=== PATIENT | female | born 1980 | race Caucasian/White ===

== ENCOUNTER 2016-09-06 02:14 | Emergency (ER) | payer SELFPAY ==
[~2016-09-06] VITALS: Ht 154.9 cm; Wt 55.0 kg
[~2016-09-06 02:14] MED LIST: BIOT1CAP8 PO; VITACAP26 PO; vitamin b 12 PO; vitamin d PO
[2016-09-06 02:16] VITALS: TEMP 36.8; Ht 154.9 cm; Wt 55.0 kg
[2016-09-06] MEDS ORDERED: ALBUT/IPRATROP 3MG/0.5MG NEB 3 ML VIAL INH STA (02:33)
[2016-09-06] MEDS ORDERED: ALBUTEROL HFA 8 GM INHALER INH ONE (04:00)
[2016-09-06] MEDS ORDERED: HYDR5SYP11 PO (04:01)
[2016-09-06] MEDS ORDERED: AZITTAB PO (04:01)
--- NOTE | 2016-09-06 04:02 | EMERGENCY ROOM VISIT NOTE ---
History First contact with patient: 02:21 Chief Complaint: FLU LIKE SX Stated Complaint: FLU SYMS History of Present Illness The patient is a 36 year old female who presents to the Emergency Room with complaints of flulike symptoms. The patient states that over the past 9 days, she has had nasal drainage, a nonproductive cough, and fatigue. The patient states that her ears have felt full. She has had some general body aches. She did not receive a flu vaccine this year. She denies any headache, neck pain, fevers, shortness of breath, chest pain, abdominal pain, nausea or vomiting. Review of Systems A complete 10-point Review of Systems was discussed with the patient, with pertinent positives and negatives listed in the History of Present Illness. All remaining Review of Systems questions can be considered negative unless otherwise specified. Past Medical/Surgical History Medical Problems: (1) Thyroiditis Nos Surgical Problems: (1) No significant past surgical history Social History Smoking Status: Current Every Day Smoker Alcohol Use: none Marital Status: Occupation Status: employed Current/Historical Medications Scheduled Azithromycin (Zithromax Z-Errol), 0 PO UD Scheduled PRN Hydrocodone W/ Homatropine (Hycodan 5/1.5MG 5 Ml), 5-10 ML PO Q4H PRN for Cough Allergies Coded Allergies: No Known Allergies (Unverified , 09/06/16) Physical Exam Vital Signs Date Time Temp Pulse Resp B/P Pulse Ox O2 Delivery O2 Flow Rate FiO2 09/06/16 04:10 85 18 104/68 100 09/06/16 02:16 36.8 82 18 145/96 100 Room Air Physical Exam VITALS: Vitals are noted on the nurse's note and reviewed by myself. Vital signs stable. GENERAL: This is a 36-year-old female, in no acute distress, nondiaphoretic, well-developed well-nourished. SKIN: The skin was without rashes. EARS: External auditory canals clear, tympanic membranes pearly ayala without erythema or effusion bilaterally. EYES: Pupils equal round and reactive to light and accommodation. Conjunctivae without injection, sclerae without icterus. NOSE: Patent, turbinates without inflammation or discharge. No sinus tenderness. MOUTH: Mucous membranes moist. Tonsils are not enlarged. Pharynx without erythema or exudate. NECK: Supple without nuchal rigidity. No lymphadenopathy. No meningismus. HEART: Regular rate and rhythm without murmurs gallops or rubs. LUNGS: Mild expiratory wheezing throughout. Lungs are otherwise clear. No retractions or accessory muscle use. ABDOMEN: Positive bowel sounds x 4. Soft, nontender to palpation. NEURO: Patient was alert and oriented to person place and time. Medical Decision & Procedures ER Provider Diagnostic Interpretation: Chest x-ray interpretation: No bony abnormalities. No pneumothorax. No obvious consolidation. Cardiac silhouette is normal. Laboratory Results Test 09/06/16 00:00 Influenza Type A Antigen Neg for Influ A (NEG) Influenza Type B Antigen Neg for Influ B (NEG) Medications Administered Medications (Trade) Dose Ordered Sig/Osiel Route Start Time Stop Time Status Last Admin Dose Admin Albuterol/ Ipratropium (Duoneb) 3 ml NOW STAT INH 09/06/16 02:33 09/06/16 02:35 DC 09/06/16 02:33 3 ML Albuterol (Ventolin Hfa Inhaler) 2 puffs NOW ONCE INH 09/06/16 04:00 09/06/16 04:01 DC 09/06/16 04:09 2 PUFFS Medical Decision Differential diagnosis includes pneumonia, influenza, upper respiratory infection, among others. The patient is a 36-year-old female who presents today complaining of with cough and flulike symptoms. Chest x-ray was unremarkable. Influenza was negative. The patient was given a DuoNeb and had mild relief of her symptoms. She will be placed on a Z-Errol as she has had symptoms for over one week. She was instructed to follow-up with her primary care provider. The patient was educated to the emergency department for any worsening of their current condition or new/concerning symptoms. Impression Primary Impression: Upper respiratory infection Departure Information Dispostion Home / Self-Care Condition GOOD Prescriptions Hydrocodone W/ Homatropine (HYCODAN 5/1.5MG 5 ML) 1 Syp Syp 5-10 ML PO Q4H Y for Cough, #60 ML Prov: Alyce Pena PA-C 09/06/16 Azithromycin (ZITHROMAX Z-ERROL) 250 Mg Tab 0 PO UD, #1 PKT 2 TABS DAY 1, THEN 1 TAB DAILY FOR 4 DAYS Prov: Alyce Pena PA-C 09/06/16 Referrals No Doctor, Assigned (PCP) Patient Instructions My [facility] Additional Instructions You were prescribed Zithromax to be taken as prescribed. This is an antibiotic. All antibiotics have the potential to cause diarrhea. Stop this medication and contact a medical provider if you were to develop any significant adverse side effects including: wheezing, shortness of breath, passing out, vomiting, or a diffuse rash. Always take antibiotics as directed and COMPLETE the ENTIRE course regardless of the improvement of your symptoms. Take the Hycodan cough syrup as needed for severe cough. This is a narcotic medication. You cannot drive and should not drink alcohol while taking this medication. Use the inhaler as needed for cough/shortness of breath. Follow-up with a primary care provider in 2-3 days for further evaluation of your symptoms. Return to the emergency room with worsening shortness of breath, chest pain or any other new/concerning symptoms. Problem Qualifiers Primary Impression: Upper respiratory infection URI type: unspecified URI Qualified Codes: J06.9 - Acute upper respiratory infection, unspecified
[2016-09-06 04:10] VITALS: BP 104/68; PULSE 85; O2SAT 100
--- NOTE | 2016-09-06 07:30 | DIAGNOSTIC IMAGING REPORT ---
CHEST 2 VIEWS ROUTINE CLINICAL HISTORY: cough FLULIKE SYMPTOMS COMPARISON STUDY: No previous studies for comparison. FINDINGS: The cardiac and mediastinal contours are normal. There is no evidence of focal pulmonary consolidation. There is no evidence of failure. No pleural effusions are visualized.[ Minimal left lower lobe bronchial wall thickening is suspected. IMPRESSION: Suspected minimal left lower lobe bronchial wall thickening. No evidence of lobar consolidation. Electronically signed by: Binh Romero M.D. 09/06/2016 7:28 AM Dictated Date/Time: 09/06/2016 7:26 AM
== END 2016-09-06 04:10 | disposition home or self-care (01) ==
LOC: C.EDB 02:15
DX: J06.9 Acute upper respiratory infection, unspecified (principal); E06.9 Thyroiditis, unspecified; F17.210 Nicotine dependence, cigarettes, uncomplicated

== ENCOUNTER 2017-02-25 08:36 | Emergency (ER) | payer SELFPAY ==
[~2017-02-25] VITALS: Ht 162.6 cm; Wt 47.7 kg
[2017-02-25 08:44] VITALS: TEMP 36.6; Ht 162.6 cm; Wt 47.7 kg
[2017-02-25] MEDS ORDERED: SODIUM CHLORIDE 0.9% 1000ML 1,000 ML IV STA (09:14)
[2017-02-25 09:29] LABS: URINE APPEARANCE CLOUDY (CLEAR); URINE BILIRUBIN NEG (NEG); URINE COLOR YELLOW; URINE EPITHELIAL CELL AUTO >30 /lpf (0-5); URINE NITRITE NEG (NEG); URINE PH 5.5 (4.5-7.5); URINE SPECIFIC GRAVITY 1.033 (1.000-1.030); UROBILINOGEN NEG (NEG)
[2017-02-25 09:33] LABS: MANUAL MICROSCOPIC REQUIRED? NO; REVIEW REQ? YES
[2017-02-25 09:53] LABS: BASO % 0.4 %; BASO ABS # 0.03 K/uL (0-0.2); COMPLETE YES; EOS % 6.5 %; HEMATOCRIT 43.8 % (37-47); IG% 0.3 %; LYMPH % 40.8 %; LYMPH ABS # 2.89 K/uL (1.2-3.4); MEAN CELL VOLUME 92.6 fL (80-100); MEAN CORPUSCULAR HEMOGLOBIN 31.7 pg (25-34); MEAN CORPUSCULAR HGB CONC 34.2 g/dl (32-36); MEAN PLATELET VOLUME 10.5 fL (7.4-10.4); MONO % 7.6 %; NEUT % 44.4 %; PLATELET COUNT 209 K/uL (130-400); RED BLOOD COUNT 4.73 M/uL (4.2-5.4); WHITE BLOOD COUNT 7.08 K/uL (4.8-10.8)
--- NOTE | 2017-02-25 10:11 | DIAGNOSTIC IMAGING REPORT ---
CHEST AND ABDOMEN 2 VIEWS HISTORY: ABD PAIN, BLOATING X MONTHS COMPARISON: Chest 09/06/2016. FINDINGS: The lungs are clear. The cardiomediastinal silhouette is within normal limits. There is no pneumoperitoneum or pneumatosis. The bowel gas pattern is unremarkable. No evidence for bowel obstruction. No renal or ureteral calculi. Multiple pelvic phleboliths. IMPRESSION: No acute cardiopulmonary process. No evidence for bowel obstruction. Electronically signed by: Guille Nguyen M.D. 02/25/2017 10:09 AM Dictated Date/Time: 02/25/2017 10:03 AM
[2017-02-25 10:33] LABS: ALB/GLOB RATIO 1.1 (0.9-2); BUN/CREATININE RATIO 21.3 (10-20); CALCIUM 8.6 mg/dl (8.5-10.1); CREATININE 0.94 mg/dl (0.60-1.20); POTASSIUM 3.8 mmol/L (3.5-5.1); THYROID STIMULATING HORMONE 1.05 uIu/ml (0.300-4.500)
[2017-02-25] MEDS ORDERED: OPTIRAY 320 IV PRN (11:15)
--- NOTE | 2017-02-25 11:21 | DIAGNOSTIC IMAGING REPORT ---
CT SCAN OF THE ABDOMEN AND PELVIS WITH IV CONTRAST CLINICAL HISTORY: Generalized abdominal pain of 8 months duration. Unintended weight loss. COMPARISON STUDY: Abdominal radiographs dated 02/25/2017. TECHNIQUE: Following the IV administration of 94 cc of Optiray 320, CT scan of the abdomen and pelvis is performed from the lung bases to the proximal femora. Images are reviewed in the axial, sagittal, and coronal planes. IV contrast was administered without complication. A dose lowering technique was utilized adhering to the principles of ALARA. The examination is degraded by a paucity of intraperitoneal fat. CT DOSE: 246.58 mGy.cm FINDINGS: Lung bases: The heart is normal in size and without pericardial effusion. Foci of air trapping are identified at the lung bases. No airspace consolidation or pleural effusion is seen. Liver: The contrast-enhanced liver is normal in size, contour, and attenuation. There is no intrahepatic biliary ductal dilatation. The hepatic veins and portal veins are patent. A 1.4 cm low-attenuation lesion with foci of peripheral discontinuous nodular enhancement is seen in hepatic segment VII on image #41. Although incomplete characterized, the appearance is typical for a small hemangioma. Gallbladder: Unremarkable. Spleen: Normal in size and attenuation. Pancreas: Unremarkable. Adrenal glands: Unremarkable. Kidneys: The contrast enhanced kidneys are normal in size and without hydronephrosis. The kidneys enhance symmetrically. Abdominal vasculature: The abdominal aorta is normal in course and caliber. Bowel: The small bowel and colon are normal in course and caliber. The appendix is well-visualized and normal. Peritoneum: There is no intraperitoneal free air or abdominal ascites. Lymphadenopathy: None. Pelvic viscera: The uterus is heterogeneous and the endometrial stripe appears thickened. There is a small volume of free fluid in the cul-de-sac. A 3.6 cm simple appearing cyst is identified in the right ovary which is located in the ventral right lower quadrant. There are small left ovarian follicles. The bladder is normal as visualized. Numerous phleboliths are identified. Skeletal structures: No lytic or blastic lesions are seen. Sclerotic change is seen in the sacroiliac joints. Scattered bone islands are present in the pelvis. IMPRESSION: 1. There are no acute infectious or inflammatory findings in the abdomen or pelvis. 2. The uterus is heterogeneous and the endometrial stripe appears thickened. This may be related to the phase of the patient's cycle. 3. There is a 3.6 cm simple appearing cyst identified in the right ovary. 4. A small volume of free fluid in the cul-de-sac is likely within physiologic limits. 5. Additional findings as above. Electronically signed by: Lon Manrique M.D. 02/25/2017 11:19 AM Dictated Date/Time: 02/25/2017 11:13 AM
[2017-02-25] MEDS ORDERED: HYDR-5688 PO (12:25)
--- NOTE | 2017-02-25 12:27 | EMERGENCY ROOM VISIT NOTE ---
History First contact with patient: 08:50 Chief Complaint: ABDOMINAL PAIN Stated Complaint: HERNIA-BELLY AREA Nursing Triage Summary: having abdominal pain for the past 8 months. I feel bloated all the time. I havent gone to a dr. I notice the pain more when I am lifting heavy things or running the vacum. "I think I have a hernia and it is just getting worse" History of Present Illness Patient is a 37-year-old white female who presents emergency department for evaluation of abdominal pain 8 months. Patient reports that her symptoms started in June. She reports a lot of lower abdominal bloating and pressure. She states her abdomen feels hard to the touch, and reports that it is painful. She reports pain in the epigastric region, but also pain in the lower pelvic region. It has been progressively worsening. It worsened after she had a cold with a cough for about 3 weeks ago. 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 She also has pain with stairs and sexual intercourse. She has not taken any medication for her pain, nor tried any other medications. She reports that the pain keeps her from eating, and then when she does eat the pain is worse. She reports primarily constipation, but denies melena or hematochezia. She has not had any urinary symptoms. She reports a 60 pound weight loss in the last year, this is unintentional. 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 Her menses are typically irregular, and have been normal for her. Last menstrual period was February 09. She reports a history of abnormal Pap smear in 2008. She reportedly had a biopsy at that time, she has not had any gynecologic follow-up. She was diagnosed with a hiatal hernia about 4 years ago and placed on a PPI. She took this medication for a while, then stopped it and only began to use as needed. She is status post tubal ligation. Review of Systems Review of systems as per HPI. All other systems reviewed were negative. 10 systems reviewed. Past Medical/Surgical History Medical Problems: (1) Acute sinusitis (2) Thyroiditis Nos Surgical Problems: (1) History of tubal ligation (2) No significant past surgical history Electronic medical records are reviewed and summarized as above/below. See Problem List. Social History Smoking Status: Current Every Day Smoker Alcohol Use: none Marital Status: in relationship Housing Status: lives with family Occupation Status: employed Current/Historical Medications Scheduled PRN Hydrocodone/Acetaminophen 5MG/325MG (Arbela 5MG/325MG), 1-2 TABLETS PO Q4 PRN for Pain Physical Exam Vital Signs Date Time Temp Pulse Resp B/P (MAP) Pulse Ox O2 Delivery O2 Flow Rate FiO2 02/25/17 12:59 65 18 103/67 95 02/25/17 11:54 51 18 91/58 98 Room Air 02/25/17 08:44 36.6 66 18 116/78 98 Room Air Physical Exam CONSTITUTIONAL: Patient is a thin, well-appearing 37-year-old white female who is awake and alert and in no acute distress. EYES: Pupils equal, round, reactive to light and accommodation. EOMs intact without nystagmus. Sclera are anicteric. ENT: Tympanic membranes intact, with normal landmarks. External canals are clear. Oral and nasopharynx are clear. Mucous membranes are moist, no lesions , tongue and gums appear normal. NECK: No bruits auscultated. Supple without lymphadenopathy. No thyromegaly. No meningeal signs. Full active range of motion without discomfort. CARDIOVASCULAR: Regular rate and rhythm, with normal S1 and S2, no murmur or gallop or rub is heard. No carotid bruits auscultated. No JVD. Peripheral pulses easily palpable. RESPIRATORY: Breath sounds equal and clear to auscultation without wheezes, rales, or rhonchi heard. Full and equal chest expansion without accessory muscle use or retractions. ABDOMEN: Bowel sounds are present. Abdomen is soft, nondistended, mildly tender throughout, primarily in the lower abdomen. There is no guarding, rebound or rigidity. No masses appreciated. No organomegaly. INTEGUMENTARY: No lesions or rash, normal skin turgor. LYMPH: No lymphadenopathy. Medical Decision & Procedures ER Provider Diagnostic Interpretation: CHEST AND ABDOMEN 2 VIEWS HISTORY: ABD PAIN, BLOATING X MONTHS COMPARISON: Chest 09/06/2016. FINDINGS: The lungs are clear. The cardiomediastinal silhouette is within normal limits. There is no pneumoperitoneum or pneumatosis. The bowel gas pattern is unremarkable. No evidence for bowel obstruction. No renal or ureteral calculi. Multiple pelvic phleboliths. IMPRESSION: No acute cardiopulmonary process. No evidence for bowel obstruction. CT SCAN OF THE ABDOMEN AND PELVIS WITH IV CONTRAST CLINICAL HISTORY: Generalized abdominal pain of 8 months duration. Unintended weight loss. COMPARISON STUDY: Abdominal radiographs dated 02/25/2017. TECHNIQUE: Following the IV administration of 94 cc of Optiray 320, CT scan of the abdomen and pelvis is performed from the lung bases to the proximal femora. Images are reviewed in the axial, sagittal, and coronal planes. IV contrast was administered without complication. A dose lowering technique was utilized adhering to the principles of ALARA. The examination is degraded by a paucity of intraperitoneal fat. CT DOSE: 246.58 mGy.cm FINDINGS: Lung bases: The heart is normal in size and without pericardial effusion. Foci of air trapping are identified at the lung bases. No airspace consolidation or pleural effusion is seen. Liver: The contrast-enhanced liver is normal in size, contour, and attenuation. There is no intrahepatic biliary ductal dilatation. The hepatic veins and portal veins are patent. A 1.4 cm low-attenuation lesion with foci of peripheral discontinuous nodular enhancement is seen in hepatic segment VII on image #41. Although incomplete characterized, the appearance is typical for a small hemangioma. Gallbladder: Unremarkable. Spleen: Normal in size and attenuation. Pancreas: Unremarkable. Adrenal glands: Unremarkable. Kidneys: The contrast enhanced kidneys are normal in size and without hydronephrosis. The kidneys enhance symmetrically. Abdominal vasculature: The abdominal aorta is normal in course and caliber. Bowel: The small bowel and colon are normal in course and caliber. The appendix is well-visualized and normal. Peritoneum: There is no intraperitoneal free air or abdominal ascites. Lymphadenopathy: None. Pelvic viscera: The uterus is heterogeneous and the endometrial stripe appears thickened. There is a small volume of free fluid in the cul-de-sac. A 3.6 cm simple appearing cyst is identified in the right ovary which is located in the ventral right lower quadrant. There are small left ovarian follicles. The bladder is normal as visualized. Numerous phleboliths are identified. Skeletal structures: No lytic or blastic lesions are seen. Sclerotic change is seen in the sacroiliac joints. Scattered bone islands are present in the pelvis. IMPRESSION: 1. There are no acute infectious or inflammatory findings in the abdomen or pelvis. 2. The uterus is heterogeneous and the endometrial stripe appears thickened. This may be related to the phase of the patient's cycle. 3. There is a 3.6 cm simple appearing cyst identified in the right ovary. 4. A small volume of free fluid in the cul-de-sac is likely within physiologic limits. 5. Additional findings as above. Laboratory Results 02/25/17 09:30 Red Blood Count 4.73, Mean Corpuscular Volume 92.6, Mean Corpuscular Hemoglobin 31.7, Mean Corpuscular Hemoglobin Concent 34.2, Mean Platelet Volume 10.5, Neutrophils (%) (Auto) 44.4, Lymphocytes (%) (Auto) 40.8, Monocytes (%) (Auto) 7.6, Eosinophils (%) (Auto) 6.5, Basophils (%) (Auto) 0.4, Neutrophils # (Auto) 3.14, Lymphocytes # (Auto) 2.89, Monocytes # (Auto) 0.54, Eosinophils # (Auto) 0.46, Basophils # (Auto) 0.03 02/25/17 09:30 Test 02/25/17 09:15 02/25/17 09:30 Urine Color YELLOW Urine Appearance CLOUDY (CLEAR) Urine pH 5.5 (4.5-7.5) Urine Specific [place] 1.033 (1.000-1.030) Urine Protein 1+ (NEG) Urine Glucose (UA) NEG (NEG) Urine Ketones NEG (NEG) Urine Occult Blood NEG (NEG) Urine Nitrite NEG (NEG) Urine Bilirubin NEG (NEG) Urine Urobilinogen NEG (NEG) Urine Leukocyte Esterase NEG (NEG) Urine WBC (Auto) 1-5 /hpf (0-5) Urine RBC (Auto) 0-4 /hpf (0-4) Urine Hyaline Casts (Auto) 1-5 /lpf (0-5) Urine Epithelial Cells (Auto) >30 /lpf (0-5) Urine Bacteria (Auto) 3+ (NEG) Urine Pathogenic Casts /lpf (0) Urine Test NEG (NEG) White Blood Count 7.08 K/uL (4.8-10.8) Red Blood Count 4.73 M/uL (4.2-5.4) Hemoglobin 15.0 g/dL (12.0-16.0) Hematocrit 43.8 % (37-47) Mean Corpuscular Volume 92.6 fL (80-100) Mean Corpuscular Hemoglobin 31.7 pg (25-34) Mean Corpuscular Hemoglobin Concent 34.2 g/dl (32-36) Platelet Count 209 K/uL (130-400) Mean Platelet Volume 10.5 fL (7.4-10.4) Neutrophils (%) (Auto) 44.4 % Lymphocytes (%) (Auto) 40.8 % Monocytes (%) (Auto) 7.6 % Eosinophils (%) (Auto) 6.5 % Basophils (%) (Auto) 0.4 % Neutrophils # (Auto) 3.14 K/uL (1.4-6.5) Lymphocytes # (Auto) 2.89 K/uL (1.2-3.4) Monocytes # (Auto) 0.54 K/uL (0.11-0.59) Eosinophils # (Auto) 0.46 K/uL (0-0.5) Basophils # (Auto) 0.03 K/uL (0-0.2) RDW Standard Deviation 45.9 fL (36.4-46.3) RDW Coefficient of Variation 13.5 % (11.5-14.5) Immature Granulocyte % (Auto) 0.3 % Immature Granulocyte # (Auto) 0.02 K/uL (0.00-0.02) Anion Gap 5.0 mmol/L (3-11) Est Creatinine Clear Calc Drug Dose 62.9 ml/min Estimated GFR () 91.1 Estimated GFR (Non- 78.6 BUN/Creatinine Ratio 21.3 (10-20) Calcium Level 8.6 mg/dl (8.5-10.1) Total Bilirubin 0.5 mg/dl (0.2-1) Aspartate Amino Transf (AST/SGOT) 17 U/L (15-37) Alanine Aminotransferase (ALT/SGPT) 17 U/L (12-78) Alkaline Phosphatase 70 U/L (45-117) Total Protein 6.6 gm/dl (6.4-8.2) Albumin 3.5 gm/dl (3.4-5.0) Globulin 3.1 gm/dl (2.5-4.0) Albumin/Globulin Ratio 1.1 (0.9-2) Lipase 190 U/L (73-393) Thyroid Stimulating Hormone (TSH) 1.050 uIu/ml (0.300-4.500) Chemistry Specimen Hemolysis Medications Administered Medications (Trade) Dose Ordered Sig/Osiel Route Start Time Stop Time Status Last Admin Dose Admin Sodium Chloride 1,000 ml @ 250 mls/hr Q4H STAT IV 02/25/17 09:14 02/25/17 13:10 DC 02/25/17 09:34 250 MLS/HR ED Course The patient was seen and examined as above. Old records were reviewed. IV lock was initiated. She had driven herself to the emergency department and needed to be able to drive home. Urinalysis, CBC with differential, CMP, lipase and TSH were drawn. Patient was hydrated with normal saline solution. Acute abdominal series was obtained. Laboratory studies noted a normal white count at 7000, no left shift or bandemia. H&H is normal. Electrolytes are without significant abnormality. Renal functions are not elevated. Liver functions and lipase are normal. TSH is indicative of a euthyroid state. Urinalysis completely clear. test is negative. Acute abdominal series did not show any evidence for bowel obstruction or perforation. Given her ongoing abdominal pain, CT scan of the abdomen and pelvis with IV access was ordered. CT scan did not note any acute infectious or inflammatory findings. There is a 3.6 cm simple appearing cyst in the right ovary. All laboratory and diagnostic imaging studies were reviewed with the patient. Differential diagnoses entertained included irritable bowel syndrome, inflammatory bowel disease, mass or malignancy, ovarian cyst, ovarian torsion, PID, tubo-ovarian abscess, appendicitis, bowel obstruction, perforation, musculoskeletal pain, hernia, among others. Conservative care measures were discussed. She was encouraged to follow-up with [facility] for reevaluation of the ovarian cyst. She was provided a small prescription for Arbela to use as needed for severe pain. She was educated on the worrisome signs or symptoms for which she should return to the emergency department. The patient rated her discomfort a 0/10 at discharge. Vital signs are stable at that time. Medical Decision See Emergency Department course. [place] Drug Monitoring Program Search Results: patient reviewed within database Medication Reconcilliation Current Medication List: was personally reviewed by me Blood Pressure Screening Patient's blood pressure: Normal blood pressure Blood pressure disposition: Did not require urgent referral Impression Primary Impression: Right ovarian cyst Departure Information Prescriptions Hydrocodone/Acetaminophen 5MG/325MG (Arbela 5MG/325MG) Tab 1-2 TABLETS PO Q4 Y for Pain, #15 TAB For Initial Treatment Prov: Camryn Ricketts PA 02/25/17 Referrals No Doctor, Assigned (PCP) Patient Instructions My [facility] Additional Instructions Hydrocodone/Acetaminophen (Arbela) 5/325 mg: Take 1-2 pills every four hours for breakthrough pain. Avoid alcohol, operating machinery or dangerous equipment, working on ladders or roofs, DRIVING, or situations where being under the influence may be dangerous. It is recommended to use an [id number] stool softener such as Colace, 100mg twice daily while taking this medication to avoid constipation. Ibuprofen(Motrin, Advil) may be used for fever or pain. Use 600mg every six hours as needed. Take with food. Avoid using more than 2400mg in a 24 hour period. Do not use 2400mg per day for more than three consecutive days without physician direction. Prolonged inappropriate use can lead to stomach upset or ulcers. This is available over the counter and typically comes in 200mg tablets. (AND/OR) Acetaminophen(Tylenol) may be used for fever or pain. Use 1000mg every eight hours as needed. Avoid using more than 3000mg in a 24 hour period. This is available over the counter. Read all the package inserts or medication information paperwork provided. If you have any questions or concerns call your primary provider, pharmacist or the ER for assistance. Rest and drink plenty of fluids as tolerated. Slow sips of water or sports drinks are recommended instead of large amounts all at once. Heating pad to the abdomen as needed for discomfort. Continue current medications. Once your stomach is settled start with a clear liquid diet (jello, soup broth, etc.) and then advance as tolerated. You should avoid full, heavy meals for about 24 hrs from the time your symptoms resolved. Return to the ER immediately for worsening or persistent abdominal pain, vomiting, fevers, chest pains, difficulty breathing, black or bloody stools, worsening of your condition, or as needed. Follow up with your primary physician in 1-2 days for a recheck of your current condition.
[2017-02-25 12:59] VITALS: BP 103/67; PULSE 65; O2SAT 95
== END 2017-02-25 13:02 | disposition home or self-care (01) ==
LOC: C.EDB 08:37
DX: N83.201 Unspecified ovarian cyst, right side (principal); F17.200 Nicotine dependence, unspecified, uncomplicated

== ENCOUNTER 2017-08-23 20:59 | Emergency (ER) | payer OTHER ==
[~2017-08-23] VITALS: Ht 157.5 cm; Wt 52.3 kg
[~2017-08-23 20:59] MED LIST changes: -BIOT1CAP8 PO; +HYDR-5688 PO; -VITACAP26 PO; -vitamin b 12 PO; -vitamin d PO
[2017-08-23 21:06] VITALS: TEMP 36.7; Ht 157.5 cm; Wt 52.3 kg
[2017-08-23] MEDS ORDERED: KETOROLAC TROMETHAMINE 30 MG/ML VIAL IV STA (21:25)
[2017-08-23] MEDS ORDERED: SODIUM CHLORIDE 0.9% 1000ML 1,000 ML IV STA (21:25)
[2017-08-23] MEDS ORDERED: SODIUM CHLORIDE 0.9% 1000ML 1,000 ML IV ONE (21:25)
[2017-08-23 21:59] LABS: BASO % 0.3 %; BASO ABS # 0.03 K/uL (0-0.2); EOS % 3.3 %; EOS ABS # 0.34 K/uL (0-0.5); HEMATOCRIT 40.9 % (37-47); HEMOGLOBIN 13.8 g/dL (12.0-16.0); IG# 0.02 K/uL (0.00-0.02); LYMPH % 15.5 %; MEAN CELL VOLUME 93.6 fL (80-100); MEAN CORPUSCULAR HEMOGLOBIN 31.6 pg (25-34); MEAN CORPUSCULAR HGB CONC 33.7 g/dl (32-36); MEAN PLATELET VOLUME 9.7 fL (7.4-10.4); MONO % 4.5 %; MONO ABS # 0.47 K/uL (0.11-0.59); NEUT % 76.2 %; NEUT ABS # 7.87 K/uL (1.4-6.5); PLATELET COUNT 217 K/uL (130-400); RED CELL DISTRIBUTION WIDTH SD 48.4 fL (36.4-46.3); WHITE BLOOD COUNT 10.33 K/uL (4.8-10.8)
[2017-08-23 22:15] LABS: ALBUMIN 3.6 gm/dl (3.4-5.0); CALCIUM 8.7 mg/dl (8.5-10.1); CREATININE 0.81 mg/dl (0.60-1.20); POTASSIUM 3.9 mmol/L (3.5-5.1)
[2017-08-23 22:18] LABS: TOTAL PROTEIN 6.6 gm/dl (6.4-8.2)
--- NOTE | 2017-08-23 22:55 | DIAGNOSTIC IMAGING REPORT ---
EXAMINATION: RENAL ULTRASOUND CLINICAL HISTORY: Left flank pain COMPARISON STUDY: CT scan dated 02/25/2017 FINDINGS: The right kidney measures 10.1 cm. The left kidney measures 10.5 cm. There is no evidence of hydronephrosis. There are no renal masses. The bladder was decompressed. There is mild bladder wall thickening. Neither ureteral jet was visualized. IMPRESSION : 1. Normal kidneys. No evidence of hydronephrosis 2. Apparent bladder wall thickening which may be secondary to a nondistended bladder Electronically signed by: Binh Romero M.D. 08/23/2017 10:54 PM Dictated Date/Time: 08/23/2017 10:53 PM
--- NOTE | 2017-08-23 22:57 | DIAGNOSTIC IMAGING REPORT ---
EXAMINATION: PELVIC ULTRASOUND CLINICAL HISTORY: Left pelvic pain COMPARISON STUDY: FINDINGS: The uterus measured 10.2 x 5.2 x 4.3 cm. The endometrial stripe measured 9 mm. The right ovary measured 38 x 25 x 26 mm. There is trace fluid adjacent to the right ovary. There are a few tiny echogenic foci within the right ovary possibly representing small calcifications. The left ovary measured 27 x 14 x 20 mm.. There is no ultrasonographic evidence of ovarian torsion. It should be noted that ovarian torsion can be present with normal Doppler ultrasonographic findings. There was no evidence of pathologic free pelvic fluid. IMPRESSION: 1. Normal uterus 2. No pathologic ovarian masses. Electronically signed by: Binh Romero M.D. 08/23/2017 10:56 PM Dictated Date/Time: 08/23/2017 10:55 PM
[2017-08-23 23:29] VITALS: BP 92/61; PULSE 72; O2SAT 99
--- NOTE | 2017-08-27 14:02 | EMERGENCY ROOM VISIT NOTE ---
History Report prepared by Gauri: Deven Leyva Under the Supervision of: Dr. Jose Raul Douglass M.D. First contact with patient: 21:18 Chief Complaint: PELVIC PAIN Stated Complaint: LOWER OVARY PAIN History of Present Illness The patient is a 37 year old female who presents to the Emergency Room with complaints of severe pain in her "left lower pelvis" that began roughly 5 hours ago. The patient states that she started her menstrual cycle today but has never felt pain like his with her normal periods. She notes that her pain starts in her left lower pelvis and radiates around into the the left side of her back. Nothing seems to improve/worsen her pain. She has been diagnosed with an ovarian cyst in the past, and a CT of the kidneys this past February did not reveal any stones. She denies any burning with urination or fevers. The patient denies any chance of . Source of History: patient Onset: 5 hours ago Position: other (Left lower pelvis) Symptom Intensity: severe Modifying Factors (Worsening): other (N/A) Modifying Factors (Relieving): other (N/A) Associated Symptoms: + back pain, No fevers Review of Systems See HPI for pertinent positives & negatives. A total of 10 systems reviewed and were otherwise negative. Past Medical & Surgical Medical Problems: (1) Acute sinusitis (2) Thyroiditis Nos Surgical Problems: (1) History of tubal ligation (2) No significant past surgical history Old medical records were reviewed. Nurse's notes were reviewed and I agree with. Family History Hypertension Social History Smoking Status: Current Every Day Smoker Alcohol Use: none Marital Status: in relationship Housing Status: lives with family Occupation Status: employed Current/Historical Medications No Active Prescriptions or Reported Meds Allergies Coded Allergies: No Known Allergies (Unverified , 08/23/17) Physical Exam Vital Signs Date Time Temp Pulse Resp B/P (MAP) Pulse Ox O2 Delivery O2 Flow Rate FiO2 08/23/17 23:29 72 18 92/61 99 Room Air 08/23/17 22:35 78 17 119/71 96 Room Air 08/23/17 21:06 36.7 80 18 127/85 94 Room Air Physical Exam General: mildly-ill appearing middle age female in no acute distress. HEENT: Normal cephalic atraumatic. Pupils are equal round and reactive to light. Extraocular movements are intact. Oropharynx is pink with moist mucous membranes. No swelling of the mouth lips or tongue. Neck: Supple with a midline trachea. No meningeal signs or stiffness, no JVD or bruits. No Stridor. Chest: Clear to auscultation bilaterally. No wheezes or rhonchi. No increased work of breathing. Heart: regular rate and rhythm. Abdomen: Soft and minimally tender in the left lower quadrant nondistended without rebound guarding or rigidity. Extremities: No cyanosis clubbing or edema. No calf tenderness or assymetry Spine/Back. Non tender to palpation. No CVA tenderness Skin: Good turgor without rashes. Neurologic exam: Cranial nerves two through 12 are intact. Motor and sensation are intact and symmetrical throughout. Medical Decision & Procedures ER Provider Diagnostic Interpretation: Radiology results as stated below per my review and radiologist interpretation: EXAMINATION: PELVIC ULTRASOUND CLINICAL HISTORY: Left pelvic pain COMPARISON STUDY: FINDINGS: The uterus measured 10.2 x 5.2 x 4.3 cm. The endometrial stripe measured 9 mm. The right ovary measured 38 x 25 x 26 mm. There is trace fluid adjacent to the right ovary. There are a few tiny echogenic foci within the right ovary possibly representing small calcifications. The left ovary measured 27 x 14 x 20 mm.. There is no ultrasonographic evidence of ovarian torsion. It should be noted that ovarian torsion can be present with normal Doppler ultrasonographic findings. There was no evidence of pathologic free pelvic fluid. IMPRESSION: 1. Normal uterus 2. No pathologic ovarian masses. Electronically signed by: Binh Romero M.D. 08/23/2017 10:56 PM Laboratory Results 08/23/17 21:45 Red Blood Count 4.37, Mean Corpuscular Volume 93.6, Mean Corpuscular Hemoglobin 31.6, Mean Corpuscular Hemoglobin Concent 33.7, Mean Platelet Volume 9.7, Neutrophils (%) (Auto) 76.2, Lymphocytes (%) (Auto) 15.5, Monocytes (%) (Auto) 4.5, Eosinophils (%) (Auto) 3.3, Basophils (%) (Auto) 0.3, Neutrophils # (Auto) 7.87, Lymphocytes # (Auto) 1.60, Monocytes # (Auto) 0.47, Eosinophils # (Auto) 0.34, Basophils # (Auto) 0.03 08/23/17 21:45 Test 08/23/17 21:45 08/23/17 22:00 White Blood Count 10.33 K/uL (4.8-10.8) Red Blood Count 4.37 M/uL (4.2-5.4) Hemoglobin 13.8 g/dL (12.0-16.0) Hematocrit 40.9 % (37-47) Mean Corpuscular Volume 93.6 fL (80-100) Mean Corpuscular Hemoglobin 31.6 pg (25-34) Mean Corpuscular Hemoglobin Concent 33.7 g/dl (32-36) Platelet Count 217 K/uL (130-400) Mean Platelet Volume 9.7 fL (7.4-10.4) Neutrophils (%) (Auto) 76.2 % Lymphocytes (%) (Auto) 15.5 % Monocytes (%) (Auto) 4.5 % Eosinophils (%) (Auto) 3.3 % Basophils (%) (Auto) 0.3 % Neutrophils # (Auto) 7.87 K/uL (1.4-6.5) Lymphocytes # (Auto) 1.60 K/uL (1.2-3.4) Monocytes # (Auto) 0.47 K/uL (0.11-0.59) Eosinophils # (Auto) 0.34 K/uL (0-0.5) Basophils # (Auto) 0.03 K/uL (0-0.2) RDW Standard Deviation 48.4 fL (36.4-46.3) RDW Coefficient of Variation 14.0 % (11.5-14.5) Immature Granulocyte % (Auto) 0.2 % Immature Granulocyte # (Auto) 0.02 K/uL (0.00-0.02) Anion Gap 6.0 mmol/L (3-11) Est Creatinine Clear Calc Drug Dose 76.7 ml/min Estimated GFR () 109.1 Estimated GFR (Non- 94.1 BUN/Creatinine Ratio 15.0 (10-20) Calcium Level 8.7 mg/dl (8.5-10.1) Total Bilirubin 0.5 mg/dl (0.2-1) Direct Bilirubin 0.1 mg/dl (0-0.2) Aspartate Amino Transf (AST/SGOT) 14 U/L (15-37) Alanine Aminotransferase (ALT/SGPT) 20 U/L (12-78) Alkaline Phosphatase 58 U/L (45-117) Total Protein 6.6 gm/dl (6.4-8.2) Albumin 3.6 gm/dl (3.4-5.0) Lipase 215 U/L (73-393) Human Chorionic Gonadotropin, Qual NEG (NEG) Urine Color YELLOW Urine Appearance CLEAR (CLEAR) Urine pH 5.5 (4.5-7.5) Urine Specific [place] 1.024 (1.000-1.030) Urine Protein NEG (NEG) Urine Glucose (UA) NEG (NEG) Urine Ketones NEG (NEG) Urine Occult Blood 3+ (NEG) Urine Nitrite NEG (NEG) Urine Bilirubin NEG (NEG) Urine Urobilinogen NEG (NEG) Urine Leukocyte Esterase NEG (NEG) Urine WBC (Auto) 1-5 /hpf (0-5) Urine RBC (Auto) >30 /hpf (0-4) Urine Hyaline Casts (Auto) 1-5 /lpf (0-5) Urine Epithelial Cells (Auto) 20-30 /lpf (0-5) Urine Bacteria (Auto) NEG (NEG) Date/Time Source Procedure Growth Status 08/23/17 22:00 Urine , Clean Catch Urine Culture - Final THREE TYPES OF ORGANISMS PRESENT, ALL... Complete Laboratory studies as stated above per my review. Medications Administered Medications (Trade) Dose Ordered Sig/Osiel Route Start Time Stop Time Status Last Admin Dose Admin Sodium Chloride 1,000 ml @ 999 mls/hr Q1H1M STAT IV 08/23/17 21:25 08/23/17 22:25 DC 08/23/17 21:56 999 MLS/HR Sodium Chloride 1,000 ml @ 150 mls/hr Q6H40M ONCE IV 08/23/17 21:25 08/24/17 00:38 DC 08/23/17 21:56 150 MLS/HR Ketorolac Tromethamine (Toradol Inj) 30 mg NOW STAT IV 08/23/17 21:25 08/23/17 21:27 DC 08/23/17 21:56 30 MG ED Course 2122: Past medical records reviewed. The patient was evaluated in room B6, and a complete history and physical examination were performed. 2124: Ordered Toradol 30 mg IV, Sodium Chloride 1000 mL @ 150 mL/hr IV, Sodium Chloride 1000 mL @ 999 mL/hr IV. 2343: Upon reevaluation, the patient is comfortable. I discussed the results and treatment plan with her. She verbalized agreement of the treatment plan. The patient was discharged home. Medical Decision Differential Diagnosis includes; ovarian cyst, menstrual cramping, ovarian torsion, kidney stone, electrolyte or metabolic abnormality. This patient comes in as described above. She was placed in room B6. She is here for treatment and evaluation of lower abdominal pain. She is afebrile. She is currently having her menstrual period. IV access was established and she was hydrated with IV normal saline bolus as well as Toradol 30 mg IV. She seems to do much better. test was negative. She is no white count or fever to suggest infection. She is no acute electrolyte or metabolic abnormality. She has nothing she has UTI. I did an ultrasound of her ovaries as well as her kidneys are unremarkable. I do not think is likely diverticulitis it came on suddenly. She is feeling better would like to go home I encouraged close follow-up with her regular doctor return to the ER if: Increasing pain, worsening symptoms, fever chills, any new problems or concerns. She is happy to plan and discharged home Medication Reconcilliation Current Medication List: was personally reviewed by me Blood Pressure Screening Patient's blood pressure: Normal blood pressure Impression Primary Impression: LLQ abdominal pain Additional Impression: Dysmenorrhea Scribe Attestation The scribe's documentation has been prepared under my direction and personally reviewed by me in its entirety. I confirm that the note above accurately reflects all work, treatment, procedures, and medical decision making performed by me. Departure Information Dispostion Home / Self-Care Prescriptions No Active Prescriptions or Reported Meds Referrals No Doctor, Assigned (PCP) Forms HOME CARE DOCUMENTATION FORM, IMPORTANT VISIT INFORMATION, WORK / SCHOOL INSTRUCTIONS Patient Instructions My [facility] Additional Instructions Rest. Drink plenty of fluids. Use ibuprofen 400 mg every 6 hours, take with food Return if: Increasing pain, fever chills, worsening of symptoms, any new problems or concerns. Follow-up with your doctor in 1-2 days for recheck Problem Qualifiers
== END 2017-08-24 00:08 | disposition still patient (30) ==
LOC: C.EDB 21:01
DX: N94.6 Dysmenorrhea, unspecified (principal); Z98.51 Tubal ligation status; F17.210 Nicotine dependence, cigarettes, uncomplicated; Z82.49 Family history of ischemic heart disease and other diseases of the circulatory system